=== PATIENT | female | born 1980 | race Caucasian/White ===

== ENCOUNTER → 2024-02-09 11:38 | Outpatient (REF) | payer OTHER, SELFPAY ==
[2024-02-10 19:25] LABS: Rubella Low Positive
[2024-02-10 20:55] LABS: Hepatitis B Surface Antibody Positive
[2024-02-12 03:19] LABS: Quantiferon Mitogen minus NIL 9.97 IU/mL; Quantiferon NIL 0.03 IU/mL; Quantiferon Plus TB1 minus NIL 0.01 IU/mL (<=0.34); Quantiferon Plus TB2 minus NIL 0.01 IU/mL (<=0.34); Quantiferon TB Gold Plus Negative (Negative)
== END ==
LOC: OHS 11:38
PROVIDERS: ATTENDING PHYSICIAN Nurse Practitioner Family
DX: Z23 Encounter for immunization (principal)
CPT/HCPCS: 36415; 86480; 86706; 86735; 86762; 86765; 86787